=== PATIENT | female | born 1975 | race Hispanic/Latino ===

== ENCOUNTER 2020-03-05 18:22 | Emergency (ER) | payer SELFPAY ==
[2020-03-05] MEDS ORDERED: LIDOCAINE HCL 1% 20 ML VIAL ONE (20:43)
[2020-03-05] MEDS ORDERED: CEFTRIAXONE SODIUM 1 GM ONE (21:15)
[2020-03-05] MEDS ORDERED: KETOROLAC TROMETHAMINE 30MG/ML ONE (21:15)
[2020-03-05] MEDS ORDERED: LIDOCAINE HCL-MPF 1% 2ML VIAL ONE (21:16)
== END 2020-03-05 21:36 | disposition home or self-care (01) ==
LOC: EDH 18:22
DX: N76.4 Abscess of vulva (principal); K61.0 Anal abscess
CPT/HCPCS: 56405; 96372 ×2; 99284; J0696; J1885; J3490

== ENCOUNTER 2020-11-07 14:31 | Emergency (ER) | payer SELFPAY ==
[~2020-11-07] VITALS: Ht 160 cm; Wt 82.6 kg
[2020-11-07 14:34] VITALS: BP 120/77
[2020-11-07] MEDS ORDERED: CEFTRIAXONE 1G VIAL IM ONE (15:30)
[2020-11-07] MEDS ORDERED: ONDANSETRON ODT 4MG TAB SL ONE (15:30)
[2020-11-07] MEDS ORDERED: MORPHINE 4 MG SYG IM ONE (15:30)
[2020-11-07] MEDS ORDERED: KETOROLAC 30MG VIAL (30MG/ML) IM ONE (15:30)
[2020-11-07] MEDS ORDERED: ONDANSETRON 4MG TABLET ONE (15:45)
[2020-11-07] MEDS ORDERED: MORPHINE 4 MG SYG ONE (15:46)
[2020-11-07] MEDS ORDERED: CEFTRIAXONE 1G VIAL ONE (15:46)
[2020-11-07] MEDS ORDERED: KETOROLAC 30MG VIAL (30MG/ML) ONE (15:46)
[2020-11-07] MEDS ORDERED: LIDOCAINE HCL-MPF 1% 2ML VIAL ONE (15:46)
[2020-11-07] MEDS ORDERED: LIDOCAINE HCL 1% 20 ML VIAL ONE (16:13)
[2020-11-07 17:14] VITALS: BP 125/77
[2020-11-07] MEDS ORDERED: IBUP-2070 PO (18:43)
[2020-11-07] MEDS ORDERED: CEPH500B PO (18:43)
[2020-11-07] MEDS ORDERED: SULF1TAB42 PO (18:43)
[2020-11-07] MEDS ORDERED: ACET1TAB25 PO (18:43)
== END 2020-11-07 18:52 | disposition home or self-care (01) ==
LOC: EDH 14:31
DX: N76.4 Abscess of vulva (principal)
CPT/HCPCS: 56405; 96372 ×2; 99284; J0696; J1885; J2270; J3490; Q0162